=== PATIENT | male | born 1935 | race Caucasian/White ===

== ENCOUNTER 2016-05-17 09:10 | Day surgery (SDC) | payer BC ==
[2016-05-15 11:54] LABS: BASOPHILS 0.4 %; BASOPHILS ABSOLUTE 0.04 10/3/uL (0.0-0.16); EOSINOPHILS 4.3 %; EOSINOPHILS ABSOLUTE 0.39 10/3/uL (0.0-0.53); IMMATURE GRANULOCYTES 0.2 %; IMMATURE GRANULOCYTES ABSOLUTE 0.02 10/3/uL (0.0-0.11); LYMPHOCYTES 24.3 %; LYMPHOCYTES ABSOLUTE 2.18 10/3/uL (0.67-4.30); MEAN CORPUS HGB CONC 34.3 g/dL (32.0-36.0); MEAN CORPUSCULAR HEMOGLOB 31.9 pg (26.0-34.0); MEAN CORPUSCULAR VOLUME 93.1 fL (80-100); MEAN PLATELET VOLUME 10.2 fL (9.2-13.0); MONOCYTES 9.9 %; MONOCYTES ABSOLUTE 0.89 10/3/uL (0.21-1.20); NEUTROPHILS 60.9 %; NEUTROPHILS ABSOLUTE 5.45 10/3/uL (2.02-8.40); PLATELET COUNT 234 10/3/uL (150-400); RBC DISTRIBUTION WIDTH 13.6 % (12.0-16.0); RED CELL COUNT 4.48 10/6/uL (4.7-6.1)
[2016-05-15 11:58] LABS: HEMATOCRIT 41.7 % (40.0-51.0); HEMOGLOBIN 14.3 g/dL (13.6-17.8); MANUAL DIFF NO %
[2016-05-15 12:10] LABS: A/G RATIO 1.3 (0.7-1.9); CALCIUM, SERUM 9.2 MG/DL (8.5-10.4); CHLORIDE, SERUM 103 MMOL/L (96-112); CO2 (CARBON DIOXIDE) 26 MMOL/L (24-34); CREATININE 1.29 MG/DL (0.70-1.30); GFR AFRICAN AMERICAN 61 ML/MIN (>=60); GFR NON AFRICAN AMERICAN 53 ML/MIN (>=60); GLOBULIN 3.2 G/DL (2.5-4.1); GLUCOSE, SERUM 97 MG/DL (60-99); POTASSIUM, SERUM 4.6 MMOL/L (3.5-5.3); SGOT(AST) 12 U/L (5-40); SGPT(ALT) 20 U/L (5-65); TOTAL PROTEIN 7.2 G/DL (6.0-8.5)
[2016-05-15 12:13] LABS: ALKALINE PHOSPHATASE 102 U/L (45-117); BUN (BLOOD UREA NITROGEN) 17 MG/DL (6-23); SODIUM, SERUM 142 MMOL/L (135-148); TOTAL BILIRUBIN 0.9 MG/DL (0-1.2)
--- NOTE | ~2016-05-17 | OP ---
Record Of Operation [facility] [address] [place]. [address] NAME: MIKKI LOUIS : 39 STATUS : [facility]#: [id number] AGE: 80 ADM/REG DATE : 05/17/16 MR#: [id number] REPORT SERV DATE: 05/17/16 DICTATED BY: DOMINIQUE CARO III DATE: 05/17/16 REPORT STATUS : Draft TRANSCRIBED BY: ROSENDA DATE: 05/17/16 DATE OF PROCEDURE: 05/17/2016 PREOPERATIVE DIAGNOSES: 1. Enlarging soft tissue symptomatic mass over the left lateral chest wall. 2. Enlarging symptomatic soft tissue mass along the inferior aspect of the left breast. OPERATIVE DIAGNOSES: 1. Enlarging soft tissue symptomatic mass over the left lateral chest wall. 2. Enlarging symptomatic soft tissue mass along the inferior aspect of the left breast. PROCEDURE: Resection of mass of left lateral chest wall and mass from inferior left breast. DRAINS: None. LAP AND SPONGE COUNT: Correct x3. BRIEF HISTORY: This 80-year-old male presented with a palpable, tender, poorly defined mass along the left lateral chest wall. This was symptomatic and it was felt that resection of this was indicated for both diagnostic and therapeutic reasons. The patient had a previous history of prostate cancer, and he was concerned that this could represent metastatic disease. Similarly, on the day of surgery, the patient informed us that he had a small area of thickening, which was tender and painful inferior to the left breast over the left anterior chest wall. It was felt that resection of this was indicated as well. These procedures, the risks, benefits, and alternatives, including but not limited to the risk for bleeding, infection, pain, swelling, scarring, deformity of either or both of the areas, seroma formation, hematoma formation, nerve injury, chronic paresthesias, pain, numbness, neuralgia or neuroma, and unforeseen complications including deep venous thrombosis, pulmonary embolus, myocardial infarction, stroke, pneumonia, and , were fully explained to the patient prior to surgery. His questions were answered. He understood the risks and agreed to surgery as planned. PROCEDURE IN DETAIL: After being appropriately identified and after discussing the risks of surgery with him again in the preoperative area and after marking both of the areas with a skin marker with his help in the preoperative area, the patient was taken to the operating room and placed in the supine position on the operating room table. General anesthesia was administered. He was intubated without difficulty. The left chest and left lateral abdominal wall were prepped and draped sterilely in usual fashion. After an appropriate "time-out" per [employer] standards, we made a horizontal incision directly over the palpable abnormality over the left lateral chest wall. The incision was continued through the subcutaneous tissue. Hemostasis was controlled with cautery. A poorly defined area of thickened tissue in the subcutaneous tissue was resected. This was not a discrete mass or the thickened tissue consistent with adipose tissue or lipoma. It was about 5-6 cm in length. The entire block of tissue was resected and sent for permanent pathology. The area was inspected both through and around the incision. No other suspicious lesions, nodules, or abnormalities were identified. Hemostasis was assured. The subcutaneous tissue was Record Of Operation [address] [address] NAME: MIKKI LOUIS : 39 STATUS : [facility]#: [id number] AGE: 80 ADM/REG DATE : 05/17/16 MR#: [id number] REPORT SERV DATE: 05/17/16 DICTATED BY: DOMINIQUE CARO III DATE: 05/17/16 REPORT STATUS : Draft TRANSCRIBED BY: ROSENDA DATE: 05/17/16 closed with a running 3-0 chromic suture. The skin was closed with running subcuticular 4-0 Monocryl stitch. The incision was injected with 0.5% Marcaine. We then made a separate incision over the palpable area thickening along the left inferior breast margin. The incision was continued through the subcutaneous tissue. Again, a poorly defined mass of tissue and subcutaneous tissue was identified and resected. Again, this was not a discrete mass, but rather poorly defined area of subcutaneous tissue that was completely resected. The area was inspected both through and around the incision after removal of this lesion and no other suspicious nodules or abnormalities were identified. Hemostasis was assured. The subcutaneous tissue was closed with running 3-0 chromic suture. The skin was closed with a running subcuticular 4-0 Monocryl stitch. The incision was injected with 0.5% Marcaine. Dressings were applied. Anesthesia was reversed and the patient was taken to recovery room in stable condition. He tolerated the procedure well. His family was informed the results of surgery. The patient was discharged when stable and comfortable. His family was advised that he should keep his wounds clean and dry for 48 hours and he should not drive for three to four days after surgery while using narcotics and that he should resume his usual medications. He has been asked to return in two weeks for followup or sooner if any fever, chills, wound drainage, or other problems prior to that time. He was given prescription for Ultram 50 mg p.o. t.i.d., #10 as needed for pain, which he was advised not to use while driving. RHJ/MODL Dominique Caro III, M.D. / [id number] CC: Radha Garnett III, M.D.
--- NOTE | ~2016-05-17 | PREOPHP ---
PreOp History and Physical [place] [address] [place]. [address] NAME: MIKKI LOUIS : 39 STATUS : [facility]#: [id number] AGE: 80 ADM/REG DATE : 05/17/16 MR#: [id number] REPORT SERV DATE: 05/18/16 DICTATED BY: DOMINIQUE CARO III DATE: 05/18/16 REPORT STATUS : Draft TRANSCRIBED BY: ROSENDA DATE: 05/18/16 ADDENDUM: It should be noted the patient has a thickened subcutaneous mass along the inferior border of his left breast. The patient has requested this mass be resected as well. This will be done in addition to the excision of the mass over the left chest wall. Regarding the additional procedure, the procedure risks, benefits, and alternatives, including but not limited to the risk for bleeding, infection, seroma formation, hematoma formation, and unforeseen complications have been explained. His questions have been answered. He understands and agrees to this as planned. ZORAIDA/ROSENDA Dominique Caro III, M.D. / [id number] CC: Radha Garnett III, M.D.
--- NOTE | ~2016-05-17 | PREOPHP ---
PreOp History and Physical [place] [address] [address] [place]. [address] NAME: MIKKI LOUIS : 39 STATUS : PRE [facility] PAT#: [id number] AGE: 80 ADM/REG DATE : MR#: [id number] REPORT SERV DATE: 05/16/16 DICTATED BY: DOMINIQUE CARO III DATE: 05/09/16 REPORT STATUS : Draft TRANSCRIBED BY: MODL DATE: 05/09/16 HISTORY OF PRESENT ILLNESS: This is a 80-year-old male who comes to the operating room for resection of a soft tissue mass over the left lateral chest wall. The patient complains of a tender mass over his left lateral chest wall. This has been present for about 1-1/2 years. The mass is symptomatic in terms of local pain and discomfort. The patient comes now for resection of this mass. The patient has a history of prostate cancer. He is concerned this could represent recurrence of his prostate cancer, and also concerned about the pain and discomfort associated with this mass. PAST MEDICAL HISTORY: 1. History of prostate cancer. 2. Hypertension. 3. Arthritis. 4. Gastroesophageal reflux disease. ALLERGIES: CODEINE, ASPIRIN, AND MORPHINE. PAST SURGICAL HISTORY: Includes prostatectomy, bilateral knee replacement, and bladder surgery. FAMILY HISTORY: Positive for bladder cancer and lung cancer. MEDICATIONS: Azelastine, bicalutamide, cetirizine, dicyclomine, hydrocodone, lorazepam, lidocaine, lisinopril, nifedipine, omeprazole, pravastatin, Zetia, and Lupron. SOCIAL HISTORY: No history of tobacco or alcohol use. REVIEW OF SYSTEMS: The patient complains of joint pain, back pain, and kidney stones. A 14-point review of systems is otherwise unremarkable. PHYSICAL EXAMINATION: GENERAL: Obese male, in no acute distress. He is alert and oriented x3. VITAL SIGNS: Blood pressure 134/76, pulse 83, and temperature 97.5. HEENT: Unremarkable. Cranial nerves 2 through 12 are normal. LUNGS: Clear. CARDIAC: Normal. ABDOMEN: Soft, nontender. CHEST: Over the left lateral chest is a poorly defined soft tissue mass. This is some 3 to 4 cm in size in the subcutaneous tissue. It is soft, mobile, tender, and discrete. ASSESSMENT: 1. A 80-year-old male with symptomatic soft tissue mass over the left lateral chest wall. 2. History of prostate cancer. 3. Hypertension. 4. Obesity. 5. Arthritis. PreOp History and Physical [address] [address] NAME: MIKKI LOUIS : 39 STATUS : PRE [facility] PAT#: [id number] AGE: 80 ADM/REG DATE : MR#: [id number] REPORT SERV DATE: 05/16/16 DICTATED BY: DOMINIQUE CARO III DATE: 05/09/16 REPORT STATUS : Draft TRANSCRIBED BY: ROSENDA DATE: 05/09/16 PLAN: The patient comes to the operating room now for resection of this left lateral chest wall mass. This procedure, the risks, benefits, and alternatives, including not limited to the risk for bleeding, infection, pain, swelling, scarring, deformity to the area, seroma formation, hematoma formation, nerve injury, chronic paresthesia, pain, numbness, neuralgia, neuroma, and unforeseen complications including deep venous thrombosis, pulmonary embolus, myocardial infarction, stroke, pneumonia, , have been explained to the patient prior to surgery. His questions were answered. He understands the risks and agrees to surgery as planned. ZORAIDA/ROSENDA Dominique Caro III, M.D. / [id number]
[~2016-05-17 09:10] MED LIST: 8 HOUR650 MG PO; ALLERGY INJECTION; ALLERGY SHOT; ASTELIN NAS; ATV1 PO; BENTYL10 PO; BENTYL20 PO; CASODEX 50 MG T50 MG OR; CASODEX 50 MG T50 MG PO; FLONASE NAS; LIDODERM T; LUPRON DEPOT30 MG IM; LUPRON2 WEEK IJ; METAMUCIL CAN7 OZ PO; NORCO1 TA1 PO; NXL9 PO; PANTANASE NS; PRAVAC PO; PRILO PO; PRIN10 PO; SINGULAIR1 PO; TYLENOL ARTH650 MG PO; TYLENOL PM PO; VERAMYST27.5 MCG NAS; VITAMIN D1000 UNI1 PO; Z300 PO; ZETIA PO; ZYRTEC ALLGY10 MG PO
== END 2016-05-17 17:22 | disposition home or self-care (01) ==
LOC: SDC 09:10
PROVIDERS: Surgery
PROC: 0WB80ZX Excision of Chest Wall, Open Approach, Diagnostic (ICD-10-PCS; 2016-05-17)
PROC: 0HBU0ZX Excision of Left Breast, Open Approach, Diagnostic (ICD-10-PCS; 2016-05-17)
PROC: 0JQ60ZZ Repair Chest Subcutaneous Tissue and Fascia, Open Approach (ICD-10-PCS; principal; 2016-05-17 11:15)
DX: D17.1 Benign lipomatous neoplasm of skin and subcutaneous tissue of trunk (principal); I12.9 Hypertensive chronic kidney disease with stage 1 through stage 4 chronic kidney disease, or unspecified chronic kidney disease; N18.3 Chronic kidney disease, stage 3 (moderate); E78.5 Hyperlipidemia, unspecified; E78.00 Pure hypercholesterolemia, unspecified; G47.33 Obstructive sleep apnea (adult) (pediatric); G57.90 Unspecified mononeuropathy of unspecified lower limb; K21.9 Gastro-esophageal reflux disease without esophagitis; H35.021 Exudative retinopathy, right eye; H91.93 Unspecified hearing loss, bilateral; M19.90 Unspecified osteoarthritis, unspecified site; Z85.038 Personal history of other malignant neoplasm of large intestine; Z85.46 Personal history of malignant neoplasm of prostate; Z88.5 Allergy status to narcotic agent; Z88.6 Allergy status to analgesic agent; Z90.89 Acquired absence of other organs; Z90.79 Acquired absence of other genital organ(s); Z96.653 Presence of artificial knee joint, bilateral; Z96.1 Presence of intraocular lens; Z98.41 Cataract extraction status, right eye; Z98.42 Cataract extraction status, left eye; Z97.4 Presence of external hearing-aid; Z79.51 Long term (current) use of inhaled steroids; Z79.899 Other long term (current) drug therapy; Z98.890 Other specified postprocedural states
CPT/HCPCS: 71020; 80053; 85025; 88304; 93005; J0690; J2405; J3010